=== PATIENT | female | born 2000 | race Caucasian/White ===

== ENCOUNTER 2021-09-12 23:51 | Emergency (ER) | payer OTHER ==
[~2021-09-12 23:51] MED LIST: KEFLEX250 MG PO
[2021-09-13 01:01] LABS: BASOPHIL 0.2 % (0-2); EOSINOPHIL 0 % (0-5); HCT 43.3 % (37.0-47.0); HGB 13.7 g/dl (12.5-16.0); MCH 26.3 pg (25.0-31.0); MCHC 31.6 g/dL (32.0-36.0); MCV 83.1 fL (78.0-100.0); MONOCYTE 16.4 % (0-12); MPV 11.7 fL (6.0-9.5); NRBC 0; PLT 197 K/uL (150-400); RBC 5.21 M/uL (4.20-5.40); RDW 13.7 % (11.5-14.0)
[2021-09-13 01:18] LABS: ALBUMIN 4.5 g/dL (3.4-5.0); BILIRUBIN - TOTAL 0.3 mg/dL (0.2-1.0); CREATININE 0.61 mg/dL (0.51-0.95); GLOBULIN (CALCULATION) 3.8 g/dL; POTASSIUM 3.4 mmol/L (3.5-5.1); TOTAL PROTEIN 8.3 g/dL (6.4-8.2)
[2021-09-13 01:39] LABS: INFLUENZA A NAA NEGATIVE (NEGATIVE)
[2021-09-13 01:42] LABS: CORONAVIRUS 2019 SARS-COV-2 POSITIVE (NEGATIVE)
== END 2021-09-13 02:08 | disposition home or self-care (01) ==
LOC: FER 23:51
PROVIDERS: Emergency Medicine
DX: U07.1 COVID-19 (principal); R42 Dizziness and giddiness; I10 Essential (primary) hypertension; Z28.310 Unvaccinated for COVID-19
CPT/HCPCS: 36415; 80053; 85025; J7030; U0002